=== PATIENT | male | born 1985 | race Caucasian/White ===

== ENCOUNTER 2022-03-30 11:17 | Emergency (ER) | payer MEDICAID ==
[~2022-03-30] VITALS: Ht 170.2 cm; Wt 79.5 kg
[2022-03-30] MEDS: KETOROLAC TROMETHAMINE 30 MG/ML VIAL IM ONE (12:24)
[2022-03-30] MEDS ORDERED: ALBU90AE IH (13:23)
[2022-03-30] MEDS ORDERED: CYCL-397 PO (13:23)
[2022-03-30] MEDS ORDERED: NAPR-1025 PO (13:23)
[2022-03-30] MEDS ORDERED: GABA-1181 PO (13:23)
[2022-03-30 13:50] VITALS: BP 134/89
== END 2022-03-30 14:16 | disposition home or self-care (01) ==
LOC: EMS 11:19
DX: S20.212A Contusion of left front wall of thorax, initial encounter (principal); F10.20 Alcohol dependence, uncomplicated; W07.XXXA Fall from chair, initial encounter; Y93.89 Activity, other specified; Y92.89 Other specified places as the place of occurrence of the external cause; Y99.8 Other external cause status
CPT/HCPCS: 99283; 71101; 96372; J1885